=== PATIENT | male | born 1975 | race Caucasian/White ===

== ENCOUNTER 2016-05-14 13:23 | Emergency (ER) | payer OTHER ==
[~2016-05-14] VITALS: Ht 172.7 cm; Wt 96.0 kg
[~2016-05-14 13:23] MED LIST: BUPR150CR PO; LURA80 PO; XANA2TAB2 PO
[2016-05-14 14:16] VITALS: BP 126/76; PULSE 97; RESP 16; TEMP 97.6; O2SAT 97
[2016-05-14] MEDS ORDERED: SODIUM CHLOR 0.9% 1000 ML INJ 1,000 ML IV ONE (14:52)
[2016-05-14] MEDS ORDERED: ACETAMINOPHEN 325 MG TAB PO ONE (15:00)
--- NOTE | 2016-05-14 15:23 | RADRPT ---
EXAM DATE/TIME: 05/14/2016 15:06 [facility] COMPARISON: No previous studies available for comparison. INDICATIONS : Seizure, trauma to head. RADIATION DOSE: 49.81 CTDIvol (mGy) MEDICAL HISTORY : None SURGICAL HISTORY : None. ENCOUNTER: Initial ACUITY: 1 day PAIN SCALE: 0/10 LOCATION: frontal TECHNIQUE: Multiple contiguous axial images were obtained of the head. Using automated exposure control and adj ustment of the mA and/or kV according to patient size, radiation dose was kept as low as reasonably a chievable to obtain optimal diagnostic quality images. FINDINGS: CEREBRUM: The ventricles are normal for age. No evidence of midline shift, mass lesion, hemorrhage or acute in farction. No extra-axial fluid collections are seen. POSTERIOR FOSSA: The cerebellum and brainstem are intact. The 4th ventricle is midline. The cerebellopontine angle i s unremarkable. EXTRACRANIAL: The visualized portion of the orbits is intact. SKULL: The calvaria is intact. No evidence of skull fracture. CONCLUSION: Normal examination. Tom Urban MD on May 14, 2016 at 15:20 Board Certified Radiologist. This report was verified electronically.
--- NOTE | 2016-05-14 15:34 | RADRPT ---
EXAM DATE/TIME: 05/14/2016 15:18 [facility] COMPARISON: No previous studies available for comparison. INDICATIONS : Patient fell onto left side today after seizure MEDICAL HISTORY : None. SURGICAL HISTORY : None. ENCOUNTER: Initial ACUITY: 1 day PAIN SCORE: 9/10 LOCATION: Left posterior elbow FINDINGS: The examination demonstrates a small exostosis projecting off the distal humerus. The elbow itself is intact. There is no acute fracture. No significant joint effusion is seen. CONCLUSION: 1. Small exostosis projecting off the distal humerus. 2. No acute fracture identified. Silverio Amin MD on May 14, 2016 at 15:32 Board Certified Radiologist. This report was verified electronically.
--- NOTE | 2016-05-14 15:41 | PD ---
HPI Chief Complaint: Seizure Time Seen by Provider: 15:36 Travel History International Travel<30 days: No Contact w/Intl Traveler<30days: No Traveled to known affect area: No History of Present Illness HPI 40-year-old male that presents to the ED for evaluation of seizure. Per patient he was at work today and he had a witnessed seizure by his coworkers. Per patient the seizure lasted about a couple of minutes. Patient states having a seizure in the past but nothing that he's ever been diagnosed and has been treated for it. Per medical records he has a history of substance abuse with benzos and apparently he was withdrawn had a seizure at that time. He denies any current substance abuse other than alcohol. He does tell me that he did drink some alcohol before the illness. Patient stated that initially he did not want to see by ambulance but after he started throwing up he was brought here. He states that he did hit his head as well as his left elbow. Patient didn't loss consciousness with the witnessed seizure. He denies any back or neck pain. No abdominal pain. No chest pain. He had a episode of vomiting but no blood. Denies any blood thinners. All he states taking is some antidepression medication but he does not know the name of them. He states that the pain is mostly on the left elbow which is 4 out of 10. He denies any prior injuries to this area. He does have a bruise noted to the mid forehead. No allergies to medication. He denies any recent substance abuse. Patient states that before he had the seizure-like event he fell he had blurred vision. PFSH Past Medical History ADHD: Yes Anxiety: Yes Depression: Yes (diagnosed 8 years ago) Psychiatric: Yes (last February in [place] for a nervous breakdown.) Immunizations Current: Yes Social History Alcohol Use: Yes (1 LITER A DAY) Tobacco Use: Yes (1 pk a day) Substance Use: Yes (SERA, XANAX, METHADONE) Allergies-Medications (Allergen,Severity, Reaction): Coded Allergies: No Known Allergies (Verified , 05/14/16) Reported Meds & Prescriptions Reported Meds & Active Scripts Active Reported Wellbutrin SR 12 HR (Bupropion HCl) 150 Mg Tab 150 Mg PO Q12HR Latuda (Lurasidone) 80 Mg Tab 80 Mg PO DAILY Xanax 2 mg (Alprazolam) 2 Mg Tab 2 Mg PO BIDPRN Review of Systems General / Constitutional: No: Fever, Chills, Weight Gain, Weight Loss, Other Eyes: Positive: Blurred Vision, No: Diploplia, Photophobia, Drainage, Redness , Foreign Body Sensation, Pain, Tearing, Blind Spots, Visual changes, Blindness , Other HENT: Positive: Headaches, No: Vertigo, Lightheadedness, Sore Throat, Rhinitis , Rhinorrhea, Congestion, Nosebleed, Neck Stiffness, Neck Pain, Masses, Gingival Bleeding, Dental Difficulties, Ear Discharge, Earache, Other Cardiovascular: No: Chest Pain or Discomfort, Palpitations, Irregular Rhythm, Tachycardia, Diaphoresis, Syncope, Dyspnea on exertion, Varicosities, Edema, Cyanosis, Varicosities, Phlebitis, Claudication, Other Respiratory: No: Cough, Shortness of Breath, Wheezing, Sneezing, Orthopnea, Hemoptysis, Stridor, Night Sweats, Pleuritic Pain, Other Gastrointestinal: No: Nausea, Vomiting, Diarrhea, Abdominal Pain, Hematemesis, Hematochezia, Constipation, Changes in Bowel Habits, Indigestion, Dysphagia, Loss of Appetite, Other Genitourinary: No: Urgency, Frequency, Dysuria, Nocturia, Hematuria, Decreased Urinary Output, Oliguria, Hesitancy, Dribbling, Incontinence, Pelvic Pain, Flank Pain, Dyspareunia, Discharge, Dysmenorrhea, Menorrhagia, Metorrhagia, Vaginal Bleeding, Other Musculoskeletal: Positive: Pain, No: Myalgias, Arthralgias, Limited ROM, Weakness, Cramping, Edema, Atrophy, Other Skin: No Rash, No Itching, No Dryness, No Lumps, No Hives, No Change in Pigmentation, No Change in nails, No Alopecia, No Lesions, No Breast Lumps, No Breast Tenderness, No Breast Swelling, No Other Neurologic: Positive: Headache, Seizures, No: Weakness, Dizziness, Syncope, Focal Abnormalities, Coordination Problem, Tremor, Ataxia, Change in Mentation, Slurred Speech, Paresthesia, Incontinence, Sensory Disturbance, Other Psychiatric: No: Anxiety, Depression, Suicidal Ideations, Disorder of Thought, Mood Disorder, Substance Abuse, Homicidal Ideation, Other Endocrine: No: Heat Intolerance, Cold Intolerance, Polyuria, Polydipsia, Other Hematologic/Lymphatic: No: Easy Bruising, Lymph Node Enlargement, Other Physical Exam Narrative GENERAL: SKIN: Warm and dry. HEAD: Atraumatic. Normocephalic. EYES: Pupils equal and round 4 mm reactive to light and accommodation. No scleral icterus. No injection or drainage. ENT: No nasal bleeding or discharge. Mucous membranes pink and moist. NECK: Trachea midline. No JVD. CARDIOVASCULAR: Regular rate and rhythm. No murmurs, S3, S4. RESPIRATORY: No accessory muscle use. Clear to auscultation. Breath sounds equal bilaterally. GASTROINTESTINAL: Abdomen soft, non-tender, nondistended. Hepatic and splenic margins not palpable. MUSCULOSKELETAL: Extremities without clubbing, cyanosis, or edema. No obvious deformities. Full range of motion of the upper and lower extremities bilaterally. 2+ pulses bilaterally. No lumbar, thoracic, cervical spine tenderness to palpation. Patient does have some pain with range of motion of the left elbow but no obvious deformity noted. Able to move it fully. NEUROLOGICAL: Awake and alert. No obvious cranial nerve deficits. Motor grossly within normal limits. Five out of 5 muscle strength in the arms and legs. Normal speech. PSYCHIATRIC: Appropriate mood and affect; insight and judgment normal. Data Data Last Documented VS Vital Signs Date Time Temp Pulse Resp B/P Pulse Ox O2 Delivery O2 Flow Rate FiO2 05/14/16 16:00 98.2 89 17 131/80 98 Room Air Orders Complete Blood Count With Diff (05/14/16 14:52) Alcohol (Ethanol) (05/14/16 14:52) Drug Screen, Random Urine (05/14/16 14:52) Electrocardiogram (05/14/16 ) Ct Brain W/O Iv Contrast(Rout) (05/14/16 ) Blood Glucose (05/14/16 14:52) Ecg Monitoring (05/14/16 14:52) Iv Access Insert/Monitor (05/14/16 14:52) Oximetry (05/14/16 14:52) Comprehensive Metabolic Panel (05/14/16 14:52) Sodium Chlor 0.9% 1000 Ml Inj (Ns 1000 M (05/14/16 14:52) Urinalysis - C+S If Indicated (05/14/16 14:52) Acetaminophen (Tylenol) (05/14/16 15:00) Elbow, Complete (4 Vws) (05/14/16 ) Acetamin-Hydrocod 325-5 Mg ([place] 5-325 (05/14/16 16:15) Labs Laboratory Tests Test 05/14/16 05/14/16 15:04 15:36 Urine Color LIGHT-YELLOW Urine Turbidity CLEAR Urine pH 7.0 Urine Specific [place] 1.011 Urine Protein NEG mg/dL Urine Glucose (UA) TRACE mg/dL Urine Ketones 10 mg/dL Urine Occult Blood NEG Urine Nitrite NEG Urine Bilirubin NEG Urine Urobilinogen LESS THAN 2.0 MG/DL Urine Leukocyte Esterase NEG Urine WBC 1 /hpf Urine Hyaline Casts 4 /lpf Microscopic Urinalysis Comment CULT NOT INDICATED Urine Opiates Screen NEG Urine Barbiturates Screen NEG Urine Amphetamines Screen NEG Urine Benzodiazepines Screen POS Urine Cocaine Screen NEG Urine Cannabinoids Screen NEG White Blood Count 17.9 TH/MM3 Red Blood Count 4.45 MIL/MM3 Hemoglobin 14.9 GM/DL Hematocrit 42.2 % Mean Corpuscular Volume 94.7 FL Mean Corpuscular Hemoglobin 33.6 PG Mean Corpuscular Hemoglobin 35.4 % Concent Red Cell Distribution Width 12.1 % Platelet Count 175 TH/MM3 Mean Platelet Volume 8.6 FL Neutrophils (%) (Auto) 83.4 % Lymphocytes (%) (Auto) 9.2 % Monocytes (%) (Auto) 7.0 % Eosinophils (%) (Auto) 0.0 % Basophils (%) (Auto) 0.4 % Neutrophils # (Auto) 14.9 TH/MM3 Lymphocytes # (Auto) 1.6 TH/MM3 Monocytes # (Auto) 1.3 TH/MM3 Eosinophils # (Auto) 0.0 TH/MM3 Basophils # (Auto) 0.1 TH/MM3 CBC Comment DIFF FINAL Differential Comment Sodium Level 135 MEQ/L Potassium Level 3.4 MEQ/L Chloride Level 100 MEQ/L Carbon Dioxide Level 25.1 MEQ/L Anion Gap 10 MEQ/L Blood Urea Nitrogen 7 MG/DL Creatinine 1.04 MG/DL Estimat Glomerular Filtration 79 ML/MIN Rate Random Glucose 113 MG/DL Calcium Level 9.1 MG/DL Total Bilirubin 0.7 MG/DL Aspartate Amino Transf 124 U/L (AST/SGOT) Alanine Aminotransferase 202 U/L (ALT/SGPT) Alkaline Phosphatase 76 U/L Total Protein 7.9 GM/DL Albumin 3.9 GM/DL Ethyl Alcohol Level LESS THAN 3 MG/DL MDM Medical Decision Making Medical Screen Exam Complete: Yes Emergency Medical Condition: Yes Medical Record Reviewed: Yes Interpretation(s) CBC & BMP Diagram 05/14/16 15:36 LFTs slightly elevated UA negative Tox positive for benzos. Last Impressions Head CT 05/14/16 0000 Signed Impressions: Service Date/Time: Saturday, May 14, 2016 15:06 - CONCLUSION: Normal examination. Tom Urban MD Elbow X-Ray 05/14/16 0000 Signed Impressions: Service Date/Time: Saturday, May 14, 2016 15:18 - CONCLUSION: 1. Small exostosis projecting off the distal humerus. 2. No acute fracture identified. Silverio Amin MD Differential Diagnosis Seizure versus medication side effect versus syncope versus presyncope versus head injury versus fracture versus substance abuse Narrative Course 40-year-old male that presents to the ED for evaluation of possible seizure. Patient was properly examined and was found to have signs and symptoms consistent what appears to be possible seizure versus syncope. Patient has no history of seizures or other than for benzo withdrawal. He completely denies this. He does admit that he drank alcohol today. At this time I recommend labs and imaging. Patient is agreeable with this. Patient is back to baseline. Labs and imaging showed essentially unremarkable. Case will be signed out to attending pending disposition. Lux Mathews May 14, 2016 15:41
[2016-05-14 15:58] VITALS: BP 131/80; PULSE 89; RESP 17; TEMP 98.2; O2SAT 98
[2016-05-14 16:00] VITALS: BP 131/80; PULSE 89; RESP 17; TEMP 98.2; O2SAT 98
[2016-05-14 16:00] LABS: AUTOMATED NEUTROPHIL # 14.9 TH/MM3 (1.8-7.7); BASOPHIL # 0.1 TH/MM3 (0-0.2); BASOPHIL % 0.4 % (0.0-2.0); HEMATOCRIT 42.2 % (39.0-51.0); HEMO FLAGS DIFF FINAL; LYMPH % 9.2 % (9.0-44.0); LYMPHOCYTE # 1.6 TH/MM3 (1.0-4.8); MEAN CELL VOLUME 94.7 FL (80.0-100.0); MEAN CORPUSCULAR HEMOGLOBIN 33.6 PG (27.0-34.0); MEAN CORPUSCULAR HGB CONC 35.4 % (32.0-36.0); NEUT % 83.4 % (16.0-70.0); PLATELET COUNT 175 TH/MM3 (150-450); RED BLOOD COUNT 4.45 MIL/MM3 (4.50-5.90); RED CELL DISTRIBUTION WIDTH 12.1 % (11.6-17.2); WHITE BLOOD COUNT 17.9 TH/MM3 (4.0-11.0)
[2016-05-14 16:13] LABS: ALT (GPT) 202 U/L (12-78); ANION GAP 10 MEQ/L (5-15); AST (GOT) 124 U/L (15-37); BICARBONATE 25.1 MEQ/L (21.0-32.0); BLOOD UREA NITROGEN 7 MG/DL (7-18); CHLORIDE 100 MEQ/L (98-107); GLOMERULAR FILTRATION RATE 79 ML/MIN (>89); POTASSIUM 3.4 MEQ/L (3.5-5.1); SODIUM (NA) 135 MEQ/L (136-145)
[2016-05-14 16:15] LABS: ALKALINE PHOSPHATASE 76 U/L (45-117); TOTAL BILIRUBIN ADULT 0.7 MG/DL (0.2-1.0)
[2016-05-14] MEDS ORDERED: ACETAMINOPHEN/HYDROcodone 325 MG/5 MG TAB PO ONE (16:15)
[2016-05-14 16:38] LABS: AMPHETAMINE, URINE NEG (NEG); BARBITURATES, URINE NEG (NEG); COCAINE, URINE NEG (NEG)
[2016-05-14 16:39] LABS: BLOOD, URINE NEG (NEG); COMMENT (UR) CULT NOT INDICATED; CULTURE IF INDICATED CULT NOT INDICATED; GLUCOSE,URINE TRACE mg/dL (NEG); HYALINE CAST, URINE 4 /lpf (RARE); KETONE, URINE 10 mg/dL (NEG); NITRITE,URINE NEG (NEG); URINE COLOR LIGHT-YELLOW (YELLW/STRAW)
[2016-05-14 17:36] VITALS: BP 132/83; PULSE 92; RESP 18; O2SAT 96
[2016-05-14] MEDS ORDERED: chlordiazePOXIDE 25 MG CAP PO PRN (17:45)
[2016-05-14] MEDS ORDERED: CHLO25CA2 PO (17:46)
--- NOTE | 2016-05-14 17:47 | PD ---
Physical Exam Date Seen by Provider: May 14, 2016 Time Seen by Provider: 17:42 Narrative The patient is a 40-year-old male was initially evaluated by the mid-level provider. Please refer to the initial history, physical, diagnostic evaluation , and treatment modality plan. Data Data Last Documented VS Vital Signs Date Time Temp Pulse Resp B/P Pulse Ox O2 Delivery O2 Flow Rate FiO2 05/14/16 17:36 92 18 132/83 96 05/14/16 17:36 Room Air 05/14/16 16:00 98.2 Orders Complete Blood Count With Diff (05/14/16 14:52) Alcohol (Ethanol) (05/14/16 14:52) Drug Screen, Random Urine (05/14/16 14:52) Electrocardiogram (05/14/16 ) Ct Brain W/O Iv Contrast(Rout) (05/14/16 ) Blood Glucose (05/14/16 14:52) Ecg Monitoring (05/14/16 14:52) Iv Access Insert/Monitor (05/14/16 14:52) Oximetry (05/14/16 14:52) Comprehensive Metabolic Panel (05/14/16 14:52) Sodium Chlor 0.9% 1000 Ml Inj (Ns 1000 M (05/14/16 14:52) Urinalysis - C+S If Indicated (05/14/16 14:52) Acetaminophen (Tylenol) (05/14/16 15:00) Elbow, Complete (4 Vws) (05/14/16 ) Acetamin-Hydrocod 325-5 Mg ([place] 5-325 (05/14/16 16:15) Chlordiazepoxide (Librium) (05/14/16 17:45) Labs Laboratory Tests Test 05/14/16 05/14/16 15:04 15:36 Urine Color LIGHT-YELLOW Urine Turbidity CLEAR Urine pH 7.0 Urine Specific [place] 1.011 Urine Protein NEG mg/dL Urine Glucose (UA) TRACE mg/dL Urine Ketones 10 mg/dL Urine Occult Blood NEG Urine Nitrite NEG Urine Bilirubin NEG Urine Urobilinogen LESS THAN 2.0 MG/DL Urine Leukocyte Esterase NEG Urine WBC 1 /hpf Urine Hyaline Casts 4 /lpf Microscopic Urinalysis Comment CULT NOT INDICATED Urine Opiates Screen NEG Urine Barbiturates Screen NEG Urine Amphetamines Screen NEG Urine Benzodiazepines Screen POS Urine Cocaine Screen NEG Urine Cannabinoids Screen NEG White Blood Count 17.9 TH/MM3 Red Blood Count 4.45 MIL/MM3 Hemoglobin 14.9 GM/DL Hematocrit 42.2 % Mean Corpuscular Volume 94.7 FL Mean Corpuscular Hemoglobin 33.6 PG Mean Corpuscular Hemoglobin 35.4 % Concent Red Cell Distribution Width 12.1 % Platelet Count 175 TH/MM3 Mean Platelet Volume 8.6 FL Neutrophils (%) (Auto) 83.4 % Lymphocytes (%) (Auto) 9.2 % Monocytes (%) (Auto) 7.0 % Eosinophils (%) (Auto) 0.0 % Basophils (%) (Auto) 0.4 % Neutrophils # (Auto) 14.9 TH/MM3 Lymphocytes # (Auto) 1.6 TH/MM3 Monocytes # (Auto) 1.3 TH/MM3 Eosinophils # (Auto) 0.0 TH/MM3 Basophils # (Auto) 0.1 TH/MM3 CBC Comment DIFF FINAL Differential Comment Sodium Level 135 MEQ/L Potassium Level 3.4 MEQ/L Chloride Level 100 MEQ/L Carbon Dioxide Level 25.1 MEQ/L Anion Gap 10 MEQ/L Blood Urea Nitrogen 7 MG/DL Creatinine 1.04 MG/DL Estimat Glomerular Filtration 79 ML/MIN Rate Random Glucose 113 MG/DL Calcium Level 9.1 MG/DL Total Bilirubin 0.7 MG/DL Aspartate Amino Transf 124 U/L (AST/SGOT) Alanine Aminotransferase 202 U/L (ALT/SGPT) Alkaline Phosphatase 76 U/L Total Protein 7.9 GM/DL Albumin 3.9 GM/DL Ethyl Alcohol Level LESS THAN 3 MG/DL [facility] Medical Record Reviewed: Yes Supervised Visit with AGUEDA: Yes Interpretation(s) Last Impressions Head CT 05/14/16 0000 Signed Impressions: Service Date/Time: Saturday, May 14, 2016 15:06 - CONCLUSION: Normal examination. Tom Urban MD Elbow X-Ray 05/14/16 0000 Signed Impressions: Service Date/Time: Saturday, May 14, 2016 15:18 - CONCLUSION: 1. Small exostosis projecting off the distal humerus. 2. No acute fracture identified. Silverio Amin MD Laboratory Tests Test 05/14/16 05/14/16 15:04 15:36 Urine Color LIGHT-YELLOW Urine Turbidity CLEAR Urine pH 7.0 Urine Specific [place] 1.011 Urine Protein NEG mg/dL Urine Glucose (UA) TRACE mg/dL Urine Ketones 10 mg/dL Urine Occult Blood NEG Urine Nitrite NEG Urine Bilirubin NEG Urine Urobilinogen LESS THAN 2.0 MG/DL Urine Leukocyte Esterase NEG Urine WBC 1 /hpf Urine Hyaline Casts 4 /lpf Microscopic Urinalysis Comment CULT NOT INDICATED Urine Opiates Screen NEG Urine Barbiturates Screen NEG Urine Amphetamines Screen NEG Urine Benzodiazepines Screen POS Urine Cocaine Screen NEG Urine Cannabinoids Screen NEG White Blood Count 17.9 TH/MM3 Red Blood Count 4.45 MIL/MM3 Hemoglobin 14.9 GM/DL Hematocrit 42.2 % Mean Corpuscular Volume 94.7 FL Mean Corpuscular Hemoglobin 33.6 PG Mean Corpuscular Hemoglobin 35.4 % Concent Red Cell Distribution Width 12.1 % Platelet Count 175 TH/MM3 Mean Platelet Volume 8.6 FL Neutrophils (%) (Auto) 83.4 % Lymphocytes (%) (Auto) 9.2 % Monocytes (%) (Auto) 7.0 % Eosinophils (%) (Auto) 0.0 % Basophils (%) (Auto) 0.4 % Neutrophils # (Auto) 14.9 TH/MM3 Lymphocytes # (Auto) 1.6 TH/MM3 Monocytes # (Auto) 1.3 TH/MM3 Eosinophils # (Auto) 0.0 TH/MM3 Basophils # (Auto) 0.1 TH/MM3 CBC Comment DIFF FINAL Differential Comment Sodium Level 135 MEQ/L Potassium Level 3.4 MEQ/L Chloride Level 100 MEQ/L Carbon Dioxide Level 25.1 MEQ/L Anion Gap 10 MEQ/L Blood Urea Nitrogen 7 MG/DL Creatinine 1.04 MG/DL Estimat Glomerular Filtration 79 ML/MIN Rate Random Glucose 113 MG/DL Calcium Level 9.1 MG/DL Total Bilirubin 0.7 MG/DL Aspartate Amino Transf 124 U/L (AST/SGOT) Alanine Aminotransferase 202 U/L (ALT/SGPT) Alkaline Phosphatase 76 U/L Total Protein 7.9 GM/DL Albumin 3.9 GM/DL Ethyl Alcohol Level LESS THAN 3 MG/DL EKG reveals normal sinus rhythm with a rate in 95. Incomplete right bundle branch block with RSR prime in V1 and QRS of 117 ms. Q wave noted in lead 3. Differential Diagnosis Differential diagnosis includes benzodiazepine withdrawal, cephalic hematoma, intracranial hemorrhage, intracranial tumor, CVA, hyponatremia, hypocalcemia, alcohol withdrawal. Narrative Course I, Dr. Dalal, have reviewed the advance practice practitioner's documentation and am in agreement, met with the patient face to face, made the diagnosis, and the medical decision making was done by me. *My assessment and Findings: The patient was initially evaluated by the mid- level provider, please refer to the initial history, physical, diagnostic evaluation, and treatment modality plan. The patient states he has a history of Ativan use, normally takes 2 mg a day, however, has been without his Ativan for several days. He has been in benzodiazepine withdrawal in the past, denies any history of primary seizure disorder. The patient's CT of the brain is unremarkable and sodium and calcium levels are unremarkable. The patient is currently alert and oriented and nonfocal. The patient will be placed on Librium until he can follow-up with his primary physician for return of benzodiazepine/Ativan use as needed. Diagnosis Primary Impression: Benzodiazepine withdrawal with complication Additional Impression: Seizure Patient Instructions: General Instructions Additional Instruction: Librium as directed. Follow-up with your primary physician. Never stopped benzodiazepine/Ativan immediately without consulting with your physician. Return if symptoms worsen or progress. Med/Other Pt SpecificInfo: Prescription(s) given Scripts Chlordiazepoxide 25 Mg Cap25 Mg PO DIRECTED PRN (WITHDRAWAL) #20 CAP Ref 0 Prov:Benny Dalal MD 05/14/16 Condition: Stable Benny Dalal MD May 14, 2016 17:47
[2016-05-14 18:28] VITALS: BP 142/63; PULSE 77; RESP 18; O2SAT 98
--- NOTE | 2016-05-15 17:33 | EKG ---
Date Performed: 05/14/2016 Time Performed: 15:44:29 PTAGE: 40 years EKG: Sinus rhythm RSR' in V1 Possible RV conduction delay Compared to prior tracing no significant change BORDERLINE E CG INTERPRETATION BASED ON A DEFAULT AGE OF 39 YEARS PREVIOUS TRACING : 05/20/2010 19.50 DOCTOR: Dex Jones Interpretating Date/Time 05/15/2016 17:32:15
[2016-06-14] MEDS ORDERED: SELE2.5%T TOPICAL (11:43)
== END 2016-05-14 18:55 | disposition home or self-care (01) ==
LOC: NEPA 13:23
DX: R56.9 Unspecified convulsions (principal); F13.239 Sedative, hypnotic or anxiolytic dependence with withdrawal, unspecified; F10.20 Alcohol dependence, uncomplicated; F17.210 Nicotine dependence, cigarettes, uncomplicated
CPT/HCPCS: 70450; 73080; 80053; 80307; 81001; 85025; 93005; 96360; 99285; J7030